=== PATIENT | female | born 1990 | race Caucasian/White ===

== ENCOUNTER → 2020-08-16 | Outpatient (REF) | payer OTHER ==
[2020-08-16 15:29] LABS: HEMATOCRIT 39.1 % (36.0-47.0); HEMOGLOBIN 12.7 g/dl (12.0-15.5); MEAN CORPUSCULAR HEMOGLOBIN 30.5 pg (27.0-33.0); MEAN CORPUSCULAR HGB CONC 32.5 g/dl (32.0-36.5); PLATELET COUNT, AUTOMATED 213 10^3/uL (150-450); RED BLOOD COUNT 4.16 10^6/uL (4.00-5.40)
[2020-08-16 16:53] LABS: HIV 1&2 SCREEN CENTAUR NEGATIVE (NEGATIVE)
[2020-08-16 21:39] LABS: CHLAMYDIA DNA AMPLIFICATION NEGATIVE (NEGATIVE); GC DNA AMPLIFICATION NEGATIVE (NEGATIVE)
== END ==
LOC: M PLALAB 13:47
PROVIDERS: ATTEND Advanced Practice Midwife
DX: Z34.02 Encounter for supervision of normal first pregnancy, second trimester (principal)

== ENCOUNTER → 2020-12-10 | Outpatient (REF) | payer OTHER | LOC: M SFHCWAGY 17:04 | PROVIDERS: ATTEND Advanced Practice Midwife | DX: Z34.03 Encounter for supervision of normal first pregnancy, third trimester (principal); Z3A.00 Weeks of gestation of pregnancy not specified ==

== ENCOUNTER 2021-01-06 17:02 | Outpatient (CLI) | payer OTHER ==
[~2021-01-06] VITALS: Ht 147.3 cm; Wt 80.1 kg
[2021-01-06] VITALS (8 sets, daily range): BP systolic 110–124; BP diastolic 59–76
[2021-01-06] MEDS ORDERED: PRENTAB9 PO (17:21)
[2021-01-06 18:56] LABS: HEMATOCRIT 32.9 % (36.0-47.0); HEMOGLOBIN 10.4 g/dl (12.0-15.5); MEAN CORPUSCULAR HEMOGLOBIN 27.2 pg (27.0-33.0); MEAN CORPUSCULAR HGB CONC 31.6 g/dl (32.0-36.5); MEAN CORPUSCULAR VOLUME 85.9 fl (80.0-96.0); PLATELET COUNT, AUTOMATED 175 10^3/uL (150-450); RED BLOOD COUNT 3.83 10^6/uL (4.00-5.40); WHITE BLOOD COUNT 12.7 10^3/uL (4.0-10.0)
[2021-01-06 19:25] LABS: TOTAL PROTEIN,RANDOM URINE 15.6 MG/DL (0.0-12.0)
[2021-01-06 19:29] LABS: ALBUMIN 2.6 GM/DL (3.2-5.2); ALT/SGPT 12 U/L (12-78); BILIRUBIN,TOTAL 0.3 MG/DL (0.2-1.0); BLOOD UREA NITROGEN 10 MG/DL (7-18); CALCIUM LEVEL 9.3 MG/DL (8.5-10.1); CARBON DIOXIDE LEVEL 20 MEQ/L (21-32); CHLORIDE LEVEL 108 MEQ/L (98-107); CREATININE FOR GFR 0.51 MG/DL (0.55-1.30); GLOMERULAR FILTRATION RATE > 60.0 (>60); GLUCOSE, FASTING 64 MG/DL (70-100); LDH LACTATE DEHYDROGENASE 213 U/L (84-246); POTASSIUM SERUM 3.7 MEQ/L (3.5-5.1); SODIUM LEVEL 138 MEQ/L (136-145); TOTAL PROTEIN 6.4 GM/DL (6.4-8.2); URIC ACID 2.9 MG/DL (2.6-6.0)
--- NOTE | 2021-01-07 01:01 | IPNPDOC ---
Obstetrical Progress Note Date of Service Jan 06, 2021 Subjective 30-year-old G1, P0 at 39+0 weeks gestation. Presents from the office for further monitoring and evaluation. She was noted to have high blood pressure in the office today. Prior to this appointment, her blood pressures have been completely normotensive. . She denies any headache, visual changes, right upper quadrant pain, shortness of breath or chest pain. She reports regular m ovement. She denies loss of fluid, vaginal bleeding or uterine contractions. PMH: None SH: None NKDA course uncomplicated thus far Vital Signs Date Time Temp Pulse Resp B/P (MAP) Pulse Ox O2 Delivery O2 Flow Rate FiO2 01/06/21 19:30 91 18 117/66 (83) 01/06/21 19:14 100 18 114/59 (77) 01/06/21 18:59 94 18 114/64 (81) 01/06/21 18:44 89 110/62 (78) 01/06/21 18:31 94 112/66 (81) 01/06/21 17:59 96 114/68 (83) 01/06/21 17:44 95 116/71 (86) 01/06/21 17:23 98.9 01/06/21 17:23 90 124/76 (92) Laboratory Tests 01/06/21 18:24: White Blood Count 12.7H, Red Blood Count 3.83L, Hemoglobin 10.4L, Hematocrit 32.9L, Mean Corpuscular Volume 85.9, Mean Corpuscular Hemoglobin 27.2, Mean Corpuscular Hemoglobin Concent 31.6L, Red Cell Distribution Width 13.9, Platelet Count 175, Nucleated Red Blood Cells % (auto) 0.0, Urine Random Creatinine 97.0, Urine Random Total Protein 15.6H, Sodium Level 138, Potassium Level 3.7, Ch [place] Level 108H, Carbon Dioxide Level 20L, Anion Gap 10, Blood Urea Nitrogen 10, Creatinine 0.51L, Glomerular Filtration Rate > 60.0, Fasting Glucose 64L, Uric Acid 2.9, Calcium Level 9.3, Total Bilirubin 0.3, Aspartate Amino Transf (AST/SGOT) 14, Alanine Aminotransferase (ALT/SGPT) 12, Alkaline Phosphatase 156H, Lactate Dehydrogenase 213, Total Protein 6.4, Albumin 2.6L, Albumin /Globulin Ratio 0.7L EFM: Category 1/reactive, no decelerations, moderate variability [place]: Irregular/rare contractions A/P: 30-year-old G1, P0 at 39+0 weeks gestation. Predominantly normotensive while being evaluated in triage. Does not meet criteria for gestational hypertension/preeclampsia, nor is she symptomatic. Preeclamptic lab panel within normal limits. She is to follow-up in the office on a weekly basis for appointments as planned. Intervention/induction is not indicated at this point. Preeclampsia precautions were reviewed in addition to routine third trimester precautions. Objective Vital Signs Date Time Temp Pulse Resp B/P (MAP) Pulse Ox O2 Delivery O2 Flow Rate FiO2 01/06/21 19:30 91 18 117/66 (83) 01/06/21 17:23 98.9 GRECIA SIMMONS DO Jan 07, 2021 01:01
== END 2021-01-06 20:07 | disposition home or self-care (01) ==
LOC: M LDO 17:02
PROVIDERS: ATTEND Obstetrics & Gynecology
DX: O26.893 Other specified pregnancy related conditions, third trimester (principal); Z3A.39 39 weeks gestation of pregnancy; R03.0 Elevated blood-pressure reading, without diagnosis of hypertension
CPT/HCPCS: 59025; 80053; 82570; 83615; 84156; 84550; 85027; G0378; G0463

== ENCOUNTER → 2021-01-06 | Outpatient (CLI) | payer OTHER ==
[~2021-01-06] MED LIST: PRENTAB9 PO
== END ==
LOC: M LABSMTC 14:17
PROVIDERS: ATTEND Specialist
DX: Z20.828 Contact with and (suspected) exposure to other viral communicable diseases (principal); Z11.59 Encounter for screening for other viral diseases

== ENCOUNTER → 2021-01-13 | Outpatient (CLI) | payer OTHER | LOC: M LABSMTC 14:32 | PROVIDERS: ATTEND Specialist | DX: Z20.822 Contact with and (suspected) exposure to COVID-19 (principal) ==

== ENCOUNTER 2021-01-16 09:04 | Inpatient (IN) | payer OTHER ==
[~2021-01-16] VITALS: Ht 147.3 cm; Wt 80.1 kg
[2021-01-16] VITALS (11 sets, daily range): BP systolic 110–128; BP diastolic 55–78
[2021-01-16] MEDS ORDERED: LACTATED RINGER'S 1000 ML IV STA (09:24)
[2021-01-16] MEDS ORDERED: OXYTOCIN DRIP 30 UNITS in IV 1 EA IV PRN (09:25)
[2021-01-16] MEDS ORDERED: BUTORPHANOL 2 MG/ML INJ (J0595) IV PRN (09:30)
[2021-01-16] MEDS ORDERED: miSOPROStol 50MCG 1/2 TABLET PV ONE (09:30)
[2021-01-16] MEDS: miSOPROStol 25MCG 1/4 TABLET PO SCH ×2 (10:00→13:58)
[2021-01-16 10:01] LABS: HEMOGLOBIN 10.2 g/dl (12.0-15.5); MEAN CORPUSCULAR HEMOGLOBIN 26.9 pg (27.0-33.0); MEAN CORPUSCULAR HGB CONC 31.9 g/dl (32.0-36.5); MEAN CORPUSCULAR VOLUME 84.4 fl (80.0-96.0); PLATELET COUNT, AUTOMATED 178 10^3/uL (150-450); RED BLOOD COUNT 3.79 10^6/uL (4.00-5.40); WHITE BLOOD COUNT 9.9 10^3/uL (4.0-10.0)
--- NOTE | 2021-01-16 10:08 | HPEPDOC ---
Obstetrical History & Physical General Date of Admission Jan 16, 2021 at 09:04 History of Present Illness Veronique is a 30yo with SIUP at 40w3d by lmp c/w 18wk u/s presents for [facility] ed elective induction of labor. She has good movement, no regular/painful ctx, no LOF, no vaginal bleeding. 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: Abnormal Pap (patient unsure what type of abnormality, last pap 2018 negative ) Past Medical History Medical History benign Surgical History: Denies/None Family History Significant Family History: No pertinent family hx Social History Marital Status: Family situation: Spouse/partner home Psychosocial History: No pertinent psych hx * Smoker: non-smoker Alcohol: Denies Drugs: denies Imunizations Tdap status: declined Allergies Coded Allergies: No Known Allergies (Unverified , 01/06/21) Medications Scheduled No.137/Iron/Folic Acd ( Vitamin Tablet) 1 Each Tablet, 1 TAB PO DAILY Physical Examination Physical Examination GENERAL: Alert and oriented times three. ABDOMEN: Gravid and non-tender to touch. FETUS: Is vertex (VTX) by sterile vaginal examination (SVE) EXTREMITIES: No edema BLE Laboratory Data 24H LABS Laboratory Tests 2 01/16/21 09:24: Serology Scanned Report Hepatitis B Testing Pertinent Laboratoy Data Blood Type: A+ RBC Antibody Screen: Negative HIV: Negative Hepatitis B: Negative Hepatitis C: Negative Rapid Plasma Reagin: Nonreactive Rubella: Immune Chlamydia/Gonorrhea: Negative Group B Streptococcus: Negative Glucose Tolerance Test: 82 Anatomy Ultrasound Ultrasound Date: Aug 24, 2020 Placenta Location: Anterior Normal Anatomy: Yes ("subtle subjective increased echogenicity to chest and bowel") Placenta Previa: No Other Ultrasounds 09/14/20: 48%ile normal chest and bowel Steroid Therapy Steroid Therapy: No Vaginal Examination Dilation: 1cm Effacement: other (thick) Station: -3 Cervical Consistency: Medium Cervical Position: Posterior Presentation: Cephalic presentation (by TAUS) Assessment Heart Rate (FHR): 150 Variability: Moderate Accelerations: Positive Decelerations: None Tocometer Contractions: Yes Frequency: irregular Assessment/Plan Assessment Veronique is a 30yo with SIUP at 40w3d by lmp c/w 18wk u/s presents for scheduled elective induction of labor. SCE 1/thick/-3, irregular ctx. Cephalic by TAUS. Exam benign, Vitals wnl. GBS negative. Benign PMhx and course. 50mcg cytotec placed PV. Attempted soria bulb, but not yet able to place since she is a snug 1cm dilated. Will plan to continue cytotec 25mcg PO q4hr and re-eval for soria cervical bulb later. Plan Admit and orient. Carding Utility Tender and consent. Diet: regular for lunch then clear liquids Group B Streptococcus (GBS) negative Labs and intravenous (IV) per unit protocol. Counseled on cytotec, soria bulb, AROM, Pitocin and induction of labor (IOL). Lactated Ringers (LR): Bolus 800 mL prior to epidural, then at 125 mL/hr Candidate for IV stadol in early labor and epidural in active labor if desired MD Jigna Echavarria Katrina D MD Jan 16, 2021 09:38
--- NOTE | 2021-01-16 15:50 | IPNPDOC ---
Text Note Date of Service The patient was seen on 01/16/21. NOTE Intrapartum Note Pt doing well, feeling minimal "tightening" of ctx. Received PO 25mcg cytotec at 1400. Vitals wnl, afebrile Cat I FHRT when monitored. +accels, -decels, mod rylee SCE: /-2, soft, soria cervical bulb placed with 40cc NS Will continue cytotec 25mcg PO q4hr Soria bulb to traction Will continue to closely monitor Safe to proceed Lin Benito MD VS,Thong, I+O VSThong I+O Laboratory Tests 01/16/21 09:46 Vital Signs Date Time Temp Pulse Resp B/P (MAP) Pulse Ox O2 Delivery O2 Flow Rate FiO2 01/16/21 14:00 98.5 86 18 118/76 (90) Lin Benito MD Jan 16, 2021 15:50
[2021-01-16] MEDS: LR 1,000 ML IV SCH (19:00)
[2021-01-16] MEDS ORDERED: OXYTOCIN DRIP 30 UNITS in IV 1 EA IV SCH (20:35)
[2021-01-16] MEDS ORDERED: FENTANYL 2MCG/ML ROPIVACAINE 0.2% IN 0.9% NACL 100ML IVBAG As Ordered ONE (23:17)
[2021-01-17] VITALS (57 sets, daily range): BP systolic 99–147; BP diastolic 54–99
[2021-01-17] MEDS ORDERED: diphenhydrAMINE 50MG/ML VIAL (J1200) IV PRN (00:10)
[2021-01-17] MEDS ORDERED: LACTATED RINGER'S 1000 ML IV PRN (00:10)
[2021-01-17] MEDS ORDERED: ePHEDrine SULFATE 25 MG/5 ML(5MG/ML) SYRINGE IV PRN (00:10)
[2021-01-17] MEDS ORDERED: EPIDURAL/PCA KEYS XX PRN (00:10)
[2021-01-17] MEDS ORDERED: REFRIGERATOR IV KEYS XX PRN (00:10)
[2021-01-17] MEDS ORDERED: EPIDURAL COMMENT XX SCH (00:10)
[2021-01-17] MEDS ORDERED: NALOXONE INJ 0.4MG/1ML VIAL (J2310 PER 1MG) IV PRN (00:10)
--- NOTE | 2021-01-17 00:38 | IPNPDOC ---
Text Note Date of Service The patient was seen on 01/17/21. NOTE Intrapartum Note Pt doing well overall but does desire epidural now. Pitocin is at 2mu. Vitals wnl, afebrile SCE: /-2 Cat I FHRT with bl 130, +accels, -decels, mod rylee Lawler: ctx q2-3min Patient to receive epidural, anesthesia is here to place for her Will continue to titrate pitocin to adequate MVUs Continue to closely monitor Safe to proceed Lin Benito MD VS,Thong, I+O VSThong I+O Laboratory Tests 01/16/21 09:46 Vital Signs Date Time Temp Pulse Resp B/P (MAP) Pulse Ox O2 Delivery O2 Flow Rate FiO2 01/16/21 22:10 85 121/70 (87) 01/16/21 20:17 18 01/16/21 14:00 98.5 Lin Benito MD Jan 17, 2021 00:38
[2021-01-17] MEDS ORDERED: FENTANYL 2MCG/ML ROPIVACAINE 0.2% IN 0.9% NACL 100ML IVBAG As Ordered ONE (00:45)
[2021-01-17] MEDS: LR 1,000 ML IV SCH ×3 (01:25→19:00)
[2021-01-17] MEDS: FENTANYL/ROPIVACAINE/NACL BAG 100 ML EPIDURAL SCH ×3 (01:27→17:46)
[2021-01-17] MEDS: ONDANSETRON 4MG/2ML VIAL IV PRN ×2 (05:13→16:05)
--- NOTE | 2021-01-17 12:21 | IPNPDOC ---
Obstetrical Progress Note Date of Service Jan 17, 2021 Subjective Patient reports she is feeling vaginal pressure. Objective Vital Signs Date Time Temp Pulse Resp B/P (MAP) Pulse Ox O2 Delivery O2 Flow Rate FiO2 01/17/21 09:37 70 20 106/58 (74) 01/17/21 09:04 98.7 Assessment Heart Rate (FHR): 130 Variability: Moderate Accelerations: Positive Decelerations: None Heart Rate Tracing: Category I Tocometer Contractions: Yes Frequency: regular Sterile Vaginal Examination Dilation: 9 cm Effacement (%): 100% Station: 0 Postion/Presentation: Cephalic presentation Assessment and Plan Age: 30 EGA at Admission: 40.3 Weeks & Days 40.4 weeks today Status: Reassuring Group B Streptococcus: Negative Anticipate: Vaginal Delivery Additional Comments IV Pitocin is at 8 mu/min. FRAN CHAPPELL CNM Jan 17, 2021 12:21
[2021-01-17] MEDS ORDERED: AMPICILLIN SOD/SULBACTAM SOD 3 GM in D5W MINI-BAG PLUS 100 ML IV ONE (16:00)
[2021-01-17] MEDS ORDERED: ACETAMINOPHEN 500 MG TAB PO ONE (16:00)
--- NOTE | 2021-01-17 17:30 | IPNPDOC ---
Obstetrical Progress Note Date of Service Jan 17, 2021 Subjective Patient has been feeling vaginal pressure. She has been pushing for the last 45 minutes to get rid of the small amount of cervix. Objective Vital Signs Date Time Temp Pulse Resp B/P (MAP) Pulse Ox O2 Delivery O2 Flow Rate FiO2 01/17/21 14:08 99.1 67 16 119/59 (79) Assessment Heart Rate (FHR): 135 Variability: Moderate Accelerations: Positive Decelerations: Early Heart Rate Tracing: Category I Tocometer Contractions: Yes Frequency: regular Sterile Vaginal Examination Dilation: 9 cm Station: +1 Postion/Presentation: Cephalic presentation Assessment and Plan Status: Reassuring Additional Comments IV Pitocin at 10 mu/min. She had a slight fever of 100.7 and given 1000 mg of PO Tylenol and 1 dose of Unasyn 3 grams IV. No effect to fetus. The cervix is still present with patient pushing but the head comes down to 1+. Dr. Delcid notified to come in for evaluation and possible section. FRAN CHAPPELL CNM Jan 17, 2021 17:30
[2021-01-17] MEDS ORDERED: BICITRA 30ML SOLN UDC As Ordered ONE (19:52)
[2021-01-17] MEDS ORDERED: ceFAZolin 2 GM/D5W 50 ML IV BAG (J0690 PER 500MG) As Ordered ONE (19:52)
[2021-01-17] MEDS ORDERED: BICITRA 30ML SOLN UDC PO ONE (19:55)
[2021-01-17] MEDS ORDERED: ceFAZolin SOD 2 GM in IV 1 EA IV ONE (19:55)
[2021-01-17] MEDS ORDERED: dexameTHASONE 4 MG/ML 1ML VIAL (J1100 PER 1MG) As Ordered ONE (19:57)
[2021-01-17] MEDS ORDERED: OXYTOCIN INJ 10 UNITS/ML VIAL (J2590) As Ordered ONE (19:57)
[2021-01-17] MEDS ORDERED: ONDANSETRON 4MG/2ML VIAL As Ordered ONE (19:57)
[2021-01-17] MEDS ORDERED: KETOROLAC 60MG 2ML VIAL As Ordered ONE (19:57)
[2021-01-17] MEDS ORDERED: MORPHINE PRES-FREE INJ 10 MG/10 ML VIAL (J2274) As Ordered ONE (19:58)
[2021-01-17] MEDS ORDERED: LIDOCAINE 2% W/EPINEPHRINE 20ML VIAL **PRES FREE As Ordered ONE (20:02)
[2021-01-17 20:39] LABS: CORD GAS ABE A -8.5; CORD GAS HCO3 A 18.5 MEQ/L; CORD GAS HCO3 V 20.9 MEQ/L; CORD GAS O2 SAT V 35.7 %; CORD GAS PCO2 A 43.6 mmHg; CORD GAS PCO2 V 41.9 mmHg; CORD GAS PH A 7.245 UNITS; CORD GAS PH V 7.316 UNITS; CORD GAS PO2 V 17.1 mmHg; CORD GAS SBC A 16.3 MEQ/L; CORD GAS TCO2 A 19.8 MEQ/L; CORD GAS TCO2 V 22.2 MEQ/L
[2021-01-17] MEDS ORDERED: fentaNYL 100 MCG/2 ML INJECTION (J3010) IV PRN ×2 (21:15→21:45)
[2021-01-17] MEDS ORDERED: PERCOCET 5MG/325MG TAB PO PRN ×4 (21:15→21:45)
[2021-01-17] MEDS ORDERED: LR 1,000 ML IV SCH ×2 (21:15→21:45)
[2021-01-17] MEDS ORDERED: ONDANSETRON 4MG/2ML VIAL IV PRN ×3 (21:15→21:45)
[2021-01-17] MEDS ORDERED: METOCLOPRAMIDE INJ 10MG/2ML VIAL (J2765 PER 1) IV PRN ×2 (21:15→21:45)
[2021-01-17] MEDS ORDERED: MEASLES,MUMPS,RUBELLA VACCINE INJ (MMR-II) (90707) SC SCH (21:20)
[2021-01-17] MEDS ORDERED: METHYLERGONOVINE MALEATE 0.2 MG TAB PO PRN (21:20)
[2021-01-17] MEDS ORDERED: ANUSOL HC CREAM 30GM TOP PRN (21:20)
[2021-01-17] MEDS ORDERED: RHOGAM 300 MCG (1500 IU) INJ (J2790) IM SCH (21:20)
[2021-01-17] MEDS ORDERED: SIMETHICONE 80MG CHEW TAB PO PRN (21:20)
[2021-01-17] MEDS ORDERED: OXYTOCIN DRIP 30 UNITS in IV 1 EA IV SCH (21:20)
[2021-01-17] MEDS ORDERED: OXYTOCIN 30 UNITS IN 0.9% NaCl 500ML IV BAG (J2590) As Ordered ONE (21:33)
[2021-01-18] VITALS (7 sets, daily range): BP systolic 110–135; BP diastolic 56–72
[2021-01-18] MEDS: KETOROLAC 30 MG/ML 1ML VIAL IV SCH ×3 (01:51→14:00)
[2021-01-18] MEDS ORDERED: LR 1,000 ML IV ONE (02:15)
[2021-01-18] MEDS: LR 1,000 ML IV SCH ×2 (02:52→05:40)
[2021-01-18 07:48] LABS: HEMATOCRIT 23.2 % (36.0-47.0); MEAN CORPUSCULAR HEMOGLOBIN 26.8 pg (27.0-33.0); MEAN CORPUSCULAR HGB CONC 31.5 g/dl (32.0-36.5); MEAN CORPUSCULAR VOLUME 85.3 fl (80.0-96.0); PLATELET COUNT, AUTOMATED 146 10^3/uL (150-450); RED BLOOD COUNT 2.72 10^6/uL (4.00-5.40); WHITE BLOOD COUNT 25.1 10^3/uL (4.0-10.0)
[2021-01-18 07:50] LABS: HEMOGLOBIN 7.3 g/dl (12.0-15.5)
[2021-01-18] MEDS: DOCUSATE SODIUM 100MG CAPSULE PO SCH ×2 (08:21→21:38)
[2021-01-18] MEDS: PRENATAL VITAMINS CHEWABLE TABLET PO SCH (08:21)
--- NOTE | 2021-01-18 10:11 | RO ---
OPERATIVE NOTE DATE OF OPERATION: 01/17/2021 Veronique is a 30-year-old female, 1, para 0, who was admitted at term. She underwent an induction, progressed to fully dilated, had an arrested of descent for over three hours. After extensive counseling, a decision was made to proceed with a primary section. PREOPERATIVE DIAGNOSIS: 1. Arrest of descent at term. POSTOPERATIVE DIAGNOSIS: 1. Arrest of descent at term. 2. Significant caput. PROCEDURE: Primary low transverse section via Pfannenstiel incision SURGEON: Thierry Delcid DO RETAIL CUSTOMER SERVICE REPRESENTATIVE: Makayla Anne CNM ANESTHESIA: Epidural. COMPLICATIONS: None. ESTIMATED BLOOD LOSS: 600 mL FINDINGS: Live male in occiput posterior position, 8-9, weight 7 lb, 14 oz. Normal appearing tubes and ovaries. DESCRIPTION OF PROCEDURE: After obtaining informed consent, the patient was taken to the operating room where epidural anesthetic was found to be adequate. She was then draped and prepped in the usual sterile fashion in the supine position. At this point, a Pfannenstiel incision was made. This was carried down to the fascia. The fascia was incised in a midline fashion and carried through laterally. The superior aspect of the fascia was then grasped with a Holden clamp, tented off and dissected off the rectus muscles sharply. The inferior aspect was dissected off in a similar fashion. The rectus muscles were in midline fashion. The peritoneum was identified. The peritoneal cavity was entered bluntly. Superior and inferior dissection into the peritoneum was then done with good visualization of the bladder. A Mobius skin retractor was placed. A low transverse uterine incision was made. The was delivered in atraumatic fashion. The nose and mouth were bulb suctioned. The cord was doubly clamped and cut. The infant was handed over to awaiting warmer. Cord blood and cord gas were sent. The placenta was removed manually. The uterus was cleared of all clot and debris and the uterine incision was then repaired in two separate layers of 0 Vicryl sutures. All superficial bleeders were coagulated and the skin was reapproximated in subcuticular fashion using 3-0 Vicryl on a Asad. Steri-Strips were placed. The patient tolerated the procedure well. She was then transferred to recovery room in stable condition. [facility]
[2021-01-18] MEDS ORDERED: KETOROLAC 30 MG/ML 1ML VIAL IV ONE (16:35)
[2021-01-19] MEDS: IBUPROFEN 800 MG TAB PO SCH ×2 (00:36→08:32)
[2021-01-19 02:00] VITALS: BP 100/58
[2021-01-19 06:00] VITALS: BP 104/66
[2021-01-19] MEDS: DOCUSATE SODIUM 100MG CAPSULE PO SCH (08:31)
[2021-01-19] MEDS: PRENATAL VITAMINS CHEWABLE TABLET PO SCH (08:31)
--- NOTE | 2021-01-19 09:12 | DSES ---
DISCHARGE SUMMARY DATE OF ADMISSION: 01/16/2021 DATE OF DISCHARGE: 01/19/2021 DISCHARGE DIAGNOSIS: Primary section, postop day 2. SURGEON: Dr. Thierry Delcid. JTAC: Makayla Anne CNM. HISTORY: Veronique is a 30-year-old, , 1, para 1-0-0-1 now who was admitted to Labor and Delivery for induction of labor. She did undergo a primary section due to arrest of descent. She did deliver a live male infant, 7 pounds 14 ounces, Apgars 8 and 9. Estimated blood loss was 600 mL. She has had an uncomplicated postoperative course. She has been out of bed for self care, myrna care, and care. She is both and bottle feeding. Her pain has been managed with p.o. pain medication. She is tolerating p.o. fluids and a regular diet. She is voiding without difficulty and passing flatus. PHYSICAL EXAMINATION: VITAL SIGNS: Temperature 97, pulse 95, respirations 18, BP 104/66. LABORATORY DATA: Preoperative CBC: Hemoglobin 10.2, hematocrit 32, platelets 178. Postoperative CBC: Hemoglobin 7.3, hematocrit 23.2, platelets 146. GENERAL: She is alert and oriented x3. BREASTS: Soft, nontender. Nipples are intact. ABDOMEN: Fundus firm at umbilicus. Incision dressing removed today. It is well approximated. The Steri-Strips are in place. There is no new drainage. No bleeding. No edema and no redness. PERINEUM: Intact with lochia rubra scant. EXTREMITIES: Bilateral lower extremities with +3 pitting edema above the knees. ASSESSMENT: Postoperative day 2. PLAN: Discharge the patient to home. I did review discharge instructions in depth including breast care, incision care with a long discussion of keeping the incision clean and dry, myrna care, pelvic rest, activity/lifting restrictions, danger signs to report to her provider, and access to care. Prescriptions have been E-prescribed for pain. The patient and her partner have had their questions answered and do desire discharge home.
--- NOTE | 2021-01-19 21:48 | IPNPDOC ---
Progress Note Date of Service: Jan 18, 2021 Day#: 1 Progress Note SUBJECT: Veronique is a 30-year-old who is a who had a primary s ection due to arrest of descent after pushing for multiple hours. Her surgery was uncomplicated. She has her IV saline locked but still has a urinary catheter in place. She reports she has been out of bed once. Maintaining a regular diet. Reports pain has been managed. OBJECTIVE: VITAL SIGNS: Within normal limits, afebrile. Alert and oriented times three. Sitting up in bed eating and drinking. Breath sounds clear to auscultation. Abdomen: Fundus firm at U. Bandage is clean without any drainage. Minimal lochia. Urinary catheter still present. Extremities: 1 to 2+ pitting edema in feet. ASSESSMENT: Day 1 postoperative from section PLAN: 1. Continue supportive nursing care. 2. IV to be saline locked as patient is tolerating PO fluids well. 3. Urinary catheter to be removed. 4. Bandage may be removed tonight and patient may shower tonight. 5. Anticipate discharge to home if patient is doing well in the morning. VS, I&O, 24H, Fishbone Vital Signs/I&O Vital Signs Label Value Date Time Patient Temperature 98.2 degrees F 01/18/21 06 Temperature Source Temporal 01/18/21599 Pulse 89 01/18/21599 Respiratory Rate 18 bpm 01/18/21599 Blood Pressure Assessment 115/65 (82) 01/18/21 06 Source Automatic Cuff (NIBP) Bedside Pulse Oximetry 97 % 01/18/21599 Laboratory Data CBC/BMP Item Value Date Time White Blood Count 25.1 10^3/uL H 01/18/21717 Red Blood Count 2.72 10^6/uL L 01/18/2118 Hemoglobin 7.3 g/dl L # 01/18/21717 Hematocrit 23.2 % L 01/18/21717 Mean Corpuscular Volume 85.3 fl 01/18/21717 Mean Corpuscular Hemoglobin Concent 31.5 g/dl L 01/18/21717 Mean Corpuscular Hemoglobin 26.8 pg L 01/18/21717 Red Cell Distribution Width 14.6 % H 01/18/21717 Platelet Count 146 10^3/uL L 01/18/21 0718 FRAN CHAPPELL [facility] Jan 19, 2021 21:48
== END 2021-01-19 12:33 | disposition home or self-care (01) | DRG 788 ==
LOC: M LDI 09:04 → M OBS 01-17 22:24
PROVIDERS: ADMIT Obstetrics & Gynecology; ATTEND Obstetrics & Gynecology
PROC: 3E0P7GC Introduction of Other Therapeutic Substance into Female Reproductive, Via Natural or Artificial Opening (ICD-10-PCS; 2021-01-16)
PROC: 10D00Z1 Extraction of Products of Conception, Low, Open Approach (ICD-10-PCS; principal; 2021-01-17 20:09)
DX: O48.0 Post-term pregnancy (principal); Z3A.40 40 weeks gestation of pregnancy; O64.0XX0 Obstructed labor due to incomplete rotation of fetal head, not applicable or unspecified; Z37.0 Single live birth